=== PATIENT | female | born 1985 | race African-American/Black ===

== ENCOUNTER 2018-06-24 20:22 | Outpatient (CLI) | payer OTHER ==
[2018-06-24] MEDS: LACTATED RINGER'S 1,000 ML IV ×2 (21:20→22:03)
[2018-06-24 22:04] LABS: ADD UMIC NO; UR ASCORBIC ACID NEGATIVE (NEGATIVE); UR BILIRUBIN (Dip) NEGATIVE (NEGATIVE); UR BLOOD (Dip) NEGATIVE (NEGATIVE); UR CLARITY CLEAR (CLEAR); UR COLOR YELLOW (YELLOW); UR GLUCOSE (Dip) NEGATIVE (NEGATIVE); UR KETONES (Dip) NEGATIVE (NEGATIVE); UR LEUKOCYTE ESTERASE (Dip) NEGATIVE Leu/ul (NEGATIVE); UR NITRITE (Dip) NEGATIVE (NEGATIVE); UR SPECIFIC GRAVITY (Dip) 1.009 (1.003-1.030); UR TOTAL PROTEIN (Dip) NEGATIVE (NEGATIVE); UR UROBILINOGEN (Dip) NEGATIVE (NEGATIVE)
[2018-06-24] MEDS: TERBUTALINE 1 MG/ML INJ SC (22:43)
== END 2018-06-24 23:40 | disposition home or self-care (01) ==
LOC: OBT 20:22 → L-D 20:24 → OBT 23:40
DX: O26.893 Other specified pregnancy related conditions, third trimester (principal); Z3A.34 34 weeks gestation of pregnancy; M25.531 Pain in right wrist
CPT/HCPCS: 36415; 81003; 96360; 96361; 96372

== ENCOUNTER 2018-07-22 16:22 | Outpatient (CLI) | payer OTHER ==
[2018-07-22 17:02] LABS: ADD MAN DIFF? NO
[2018-07-22 17:06] LABS: EOSINOPHILS % 0.3 % (0.0-7.0); HEMATOCRIT 35.8 % (37.0-47.0); HEMOGLOBIN 11.7 g/dl (12.0-16.0); MEAN CORPUSCULAR HEMOGLOBIN 27.6 pg (29.0-33.0); MEAN CORPUSCULAR HGB CONC 32.7 g/dl (32.0-37.0); MEAN CORPUSCULAR VOLUME 84.4 fl (82.0-101.0); MEAN PLATELET VOLUME 8.7 fl (7.4-10.4); MONOCYTE # 0.6 10^3/ul (0.3-0.9); MONOCYTES % 15.3 % (0.0-11.0); NEUTROPHIL # 2.1 10^3/ul (1.6-7.5); NEUTROPHILS % 57.1 % (39.0-77.0); NUCLEATED RED BLOOD CELLS% 0.6 /100WBC (0.0-0.0); PLATELET COUNT 281 10^3/UL (140-415); RED BLOOD COUNT 4.24 10^6/ul (4.20-5.40); RED CELL DISTRIBUTION WIDTH 13.2 % (11.5-14.5)
[2018-07-22 17:06] LABS: WHITE BLOOD COUNT 3.6 10^3/ul (4.8-10.8)
[2018-07-22 17:32] LABS: ALANINE AMINOTRANSFERASE 15 IU/L (13-69); ALBUMIN 3.6 g/dl (3.3-4.9); ALBUMIN/GLOBULIN RATIO 1.05; ALKALINE PHOSPHATASE 93 IU/L (42-121); ANION GAP 9 (5-13); ASPARTATE AMINO TRANSFERASE 25 IU/L (15-46); BILIRUBIN,INDIRECT 0.9 mg/dl (0-1.1); BILIRUBIN,TOTAL 0.9 mg/dl (0.2-1.3); BLOOD UREA NITROGEN 6 mg/dl (7-20); CALCIUM 10.1 mg/dl (8.4-10.2); CARBON DIOXIDE 21 mmol/L (21-31); CHLORIDE 107 mmol/L (97-110); CREATININE 0.59 mg/dl (0.44-1.00); Estimated GFR > 60 mL/min (>60); GLUCOSE 75 mg/dl (70-220); POTASSIUM 4.1 mmol/L (3.5-5.1); SODIUM 137 mmol/L (135-144)
[2018-07-22 17:48] LABS: ADD UMIC YES; UR ASCORBIC ACID NEGATIVE (NEGATIVE); UR BILIRUBIN (Dip) NEGATIVE (NEGATIVE); UR BLOOD (Dip) NEGATIVE (NEGATIVE); UR CLARITY CLOUDY (CLEAR); UR COLOR YELLOW (YELLOW); UR GLUCOSE (Dip) NEGATIVE (NEGATIVE); UR KETONES (Dip) NEGATIVE (NEGATIVE); UR LEUKOCYTE ESTERASE (Dip) NEGATIVE Leu/ul (NEGATIVE); UR NITRITE (Dip) NEGATIVE (NEGATIVE); UR RBC 0 /HPF (0-5); UR SPECIFIC GRAVITY (Dip) 1.012 (1.003-1.030); UR SQUAMOUS EPITHELIAL CELL MANY /HPF (FEW); UR TOTAL PROTEIN (Dip) NEGATIVE (NEGATIVE); UR UROBILINOGEN (Dip) NEGATIVE (NEGATIVE); UR WBC 1 /HPF (0-5)
== END 2018-07-22 20:21 | disposition home or self-care (01) ==
LOC: OBT 16:22 → L-D 16:23 → OBT 20:21
DX: O62.9 Abnormality of forces of labor, unspecified (principal); O21.2 Late vomiting of pregnancy; Z3A.38 38 weeks gestation of pregnancy
CPT/HCPCS: 76818; 80053; 81001; 85025; 87086

== ENCOUNTER 2018-07-26 16:53 | Outpatient (CLI) | payer OTHER | END 2018-07-26 19:00 | disposition home or self-care (01) | LOC: OBT 16:53 → L-D 16:53 → OBT 19:00 | DX: O62.9 Abnormality of forces of labor, unspecified (principal); Z3A.38 38 weeks gestation of pregnancy | CPT/HCPCS: 76818 ==

== ENCOUNTER 2018-07-30 16:31 | Inpatient (IN) | payer OTHER ==
[2018-07-30] MEDS ORDERED: IBUPROFEN 600 MG TAB PO (17:00)
[2018-07-30] MEDS ORDERED: LIDOCAINE 1% (MPF) 30 ML INJ INJ (17:00)
[2018-07-30] MEDS ORDERED: CARBOPROST 250 MCG INJ IM ×2 (17:00→21:30)
[2018-07-30] MEDS ORDERED: OXYTOCIN 30 UNITS/LR 500 ML IV ×2 (17:00→21:30)
[2018-07-30] MEDS ORDERED: MISOPROSTOL 200 MCG TAB PR ×2 (17:00→21:30)
[2018-07-30] MEDS ORDERED: METHYLERGONOVINE 0.2 MG INJ IM ×2 (17:00→21:30)
[2018-07-30] MEDS: LACTATED RINGER'S 1,000 ML IV ×2 (17:10→18:21)
[2018-07-30 17:39] LABS: HEMATOCRIT 35.6 % (37.0-47.0); HEMOGLOBIN 11.7 g/dl (12.0-16.0); MEAN CORPUSCULAR HEMOGLOBIN 27.6 pg (29.0-33.0); MEAN CORPUSCULAR HGB CONC 32.9 g/dl (32.0-37.0); MEAN PLATELET VOLUME 9.2 fl (7.4-10.4); PLATELET COUNT 277 10^3/UL (140-415); RED BLOOD COUNT 4.24 10^6/ul (4.20-5.40)
[2018-07-30 17:39] LABS: WHITE BLOOD COUNT 3.4 10^3/ul (4.8-10.8)
[2018-07-30 17:42] LABS: ADD MAN DIFF? YES
[2018-07-30 17:58] LABS: PROTIME 12.3 Sec (11.9-14.9)
[2018-07-30 17:59] LABS: PARTIAL THROMBOPLASTIN TIME 26.1 Sec (23.0-35.0)
[2018-07-30] MEDS ORDERED: FENTAnyl 2MCG/ML-ROPIV 0.2% 100 ML (18:04)
[2018-07-30 18:44] LABS: SEGMENTED NEUTROPHILS (M) % 55 % (39-77)
[2018-07-30 18:45] LABS: BASOPHILS % (M) 1 % (0-2); GIANT THROMBO% (M) 10 % (0-0); LYMPHOCYTES % (M) 31 % (15-51); METAMYELOCYTES %M 1 % (0-0); MONOCYTE #M 0.3 10^3/ul (0.3-0.9); MONOCYTES % (M) 9 % (0-11); PLATELET ESTIMATE NORMAL; REACTIVE LYMPHOCYTES #M 0.1 10^3/ul (0.0-0.0); REACTIVE LYMPHOCYTES% (M) 3 % (0-0); SMUDGE%M 28 % (0-0)
[2018-07-30] MEDS ORDERED: NALOXONE (0.4 MG/ML) INJ IV (19:30)
[2018-07-30] MEDS: FENTAnyl 2MCG/ML-ROPIV 0.2% 100 ML BAG EPI (19:43)
[2018-07-30] MEDS: OXYTOCIN 30 UNITS/LR 500 ML IV ×3 (20:55→21:07)
[2018-07-30] MEDS: LACTATED RINGER'S 1,000 ML IV* (21:07)
[2018-07-30] MEDS ORDERED: LANOLIN HPA 1 PKT TOP (21:30)
[2018-07-30] MEDS: HYDROCODONE/APAP (5/325) TAB PO (21:31)
[2018-07-30] MEDS: IBUPROFEN 600 MG TAB PO (23:51)
[2018-07-30 23:52] LABS: HEPATITIS B SURFACE ANTIGEN NEGATIVE (NEGATIVE)
[2018-07-31] MEDS: LACTATED RINGER'S 1,000 ML IV* (05:07)
[2018-07-31] MEDS: IBUPROFEN 600 MG TAB PO ×3 (05:43→17:22)
[2018-07-31 06:54] LABS: ADD MAN DIFF? NO
[2018-07-31 07:00] LABS: BASOPHILS % 0.1 % (0.0-2.0); HEMATOCRIT 32.1 % (37.0-47.0); HEMOGLOBIN 10.5 g/dl (12.0-16.0); LYMPHOCYTES # 1.5 10^3/ul (0.8-2.9); LYMPHOCYTES % 18.5 % (15.0-51.0); MEAN CORPUSCULAR HEMOGLOBIN 27.3 pg (29.0-33.0); MEAN CORPUSCULAR HGB CONC 32.7 g/dl (32.0-37.0); MEAN CORPUSCULAR VOLUME 83.6 fl (82.0-101.0); MEAN PLATELET VOLUME 9.4 fl (7.4-10.4); MONOCYTES % 13.1 % (0.0-11.0); NEUTROPHIL # 5.4 10^3/ul (1.6-7.5); NEUTROPHILS % 67.9 % (39.0-77.0); PLATELET COUNT 256 10^3/UL (140-415); RED BLOOD COUNT 3.84 10^6/ul (4.20-5.40); RED CELL DISTRIBUTION WIDTH 13.8 % (11.5-14.5)
[2018-07-31 07:00] LABS: WHITE BLOOD COUNT 7.9 10^3/ul (4.8-10.8)
[2018-07-31] MEDS: SENNA/DOCUSATE NA (8.6MG/50MG) TAB PO ×2 (08:19→21:40)
[2018-07-31] MEDS: HYDROCODONE/APAP (5/325) TAB PO (14:28)
[2018-07-31 14:59] LABS: RAPID PLASMA REAGIN NONREACTIVE (NR)
[2018-08-01] MEDS: IBUPROFEN 600 MG TAB PO ×3 (00:21→13:08)
[2018-08-01] MEDS: SENNA/DOCUSATE NA (8.6MG/50MG) TAB PO (09:05)
[2018-08-01] MEDS: DIPHTH/TET/ACEL PERTUSS (ADULT) 0.5 ML VIAL IM* (13:09)
[2018-08-01] MEDS: MEASLES,MUMPS,RUBELLA VACCINE INJ SC* (13:56)
== END 2018-08-01 14:55 | disposition home or self-care (01) | DRG 807 ==
LOC: OBT 16:31 → L-D 16:31 → OBT 16:40 → L-D 16:40 → PP1 22:36
PROVIDERS: Obstetrics & Gynecology
PROC: 10E0XZZ Delivery of Products of Conception, External Approach (ICD-10-PCS; principal; 2018-07-30)
DX: O80 Encounter for full-term uncomplicated delivery (principal); Z37.0 Single live birth; Z3A.39 39 weeks gestation of pregnancy; Z23 Encounter for immunization
CPT/HCPCS: 62322; 85025; 85610; 85730; 86592; 86850; 86900; 86901; 87340; 90715; 99464